=== PATIENT | female | born 1995 | race Hispanic/Latino ===

== ENCOUNTER 2017-07-03 19:44 | Emergency (ER) | payer SELFPAY ==
[2017-07-03] MEDS ORDERED: Lidocaine 1% w/Epinephrine 1:100K 20 ML VIAL ONE (20:26)
[2017-07-03] MEDS ORDERED: Adacel (T-DAP) 0.5 ML VIAL ONE (21:18)
== END 2017-07-03 21:31 | disposition home or self-care (01) ==
LOC: ERS 19:44
DX: L03.114 Cellulitis of left upper limb (principal); Z23 Encounter for immunization
CPT/HCPCS: 10060; 87070; 87077; 87186; 87205; 90471; 90715; J2001

== ENCOUNTER 2017-07-04 16:38 | Emergency (ER) | payer SELFPAY ==
[2017-07-04 18:01] LABS: #Basophils 0.1 thou/uL (0.0-0.2); #Eosinphils 0.1 thou/uL (0.0-0.7); #Monocytes 0.6 thou/uL (0.11-0.59); #Neutrophils 6.6 thou/uL (1.40-6.50); %Basophils 0.6 % (0.0-1.0); %Eosinophils 1.3 % (0.0-10.0); %Lymphocytes 21.2 % (21.0-51.0); %Monocytes 6.6 % (0.0-10.0); %Neutrophils 70.2 % (42.0-75.0); Hemoglobin 13.8 g/dL (12.0-16.0); Mean Corpuscular Hemoglobin 28.7 pg (27.0-31.0); Mean Corpuscular Volume 86.8 fl (81.0-99.0); Mean Platelet Volume 9.1 fL (7.4-10.4); Platelet Count 227 thou/uL (130-400); RBC Distribution Width 12.6 % (11.5-14.5); Red Blood Cell (RBC) Count 4.83 mill/uL (4.20-5.40); White Blood Cell (WBC) Count 9.5 thou/uL (4.8-10.8)
[2017-07-04 18:21] LABS: ALT (SGPT) 11 U/L (8-55); AST (SGOT) 15 U/L (5-34); Albumin 4.3 g/dL (3.5-5.0); Alkaline Phosphatase 101 U/L (40-150); Anion Gap 12 mmol/L (10-20); BUN (Urea Nitrogen) 15 mg/dL (7.0-18.7); Bilirubin, Total 0.4 mg/dL (0.2-1.2); Calc. Creatinine Clearance 0 mL/min (70-130); Calcium 9.6 mg/dL (7.8-10.44); Carbon Dioxide 26 mmol/L (22-29); Chloride 103 mmol/L (98-107); Estimated GFR-MDRD 87; Globulin 3.5 g/dL (2.4-3.5); Glucose 91 mg/dL (70-105); Potassium 3.8 mmol/L (3.5-5.1); Protein, Total 7.8 g/dL (6.0-8.3); Sodium 137 mmol/L (136-145)
[2017-07-04] MEDS ORDERED: Clindamycin 150 MG CAP ONE (22:22)
== END 2017-07-04 22:56 | disposition home or self-care (01) ==
LOC: ERS 16:38
DX: L03.114 Cellulitis of left upper limb (principal)
CPT/HCPCS: 36415; 80053; 83605; 85025; 85652; 86140; 99283

== ENCOUNTER 2017-08-10 17:57 | Emergency (ER) | payer SELFPAY | END 2017-08-10 19:10 | disposition home or self-care (01) | LOC: ERS 17:57 | DX: H00.014 Hordeolum externum left upper eyelid (principal) | CPT/HCPCS: 99283 ==

== ENCOUNTER 2018-12-04 09:50 | Emergency (ER) | payer OTHER, SELFPAY ==
[2018-12-04] MEDS ORDERED: Triple Antibiotic Oint 1 GM Packet ONE (10:51)
== END 2018-12-04 11:08 | disposition home or self-care (01) ==
LOC: ERS 09:50
DX: L03.115 Cellulitis of right lower limb (principal)
CPT/HCPCS: 99283

== ENCOUNTER 2018-12-23 07:58 | Emergency (ER) | payer OTHER ==
[2018-12-23] MEDS ORDERED: Ondansetron PF 4 MG/2 ML Vial ONE (08:23)
[2018-12-23] MEDS ORDERED: Morphine 4 MG/ML VIAL ONE ×2 (08:23→09:52)
[2018-12-23 08:30] LABS: #Basophils 0.1 thou/uL (0.0-0.2); #Eosinphils 0.1 thou/uL (0.0-0.7); #Lymphocytes 2.6 thou/uL (1.20-3.40); #Monocytes 0.4 thou/uL (0.11-0.59); #Neutrophils 2.4 thou/uL (1.40-6.50); %Basophils 1.2 % (0.0-1.0); %Eosinophils 1.6 % (0.0-10.0); %Lymphocytes 46.8 % (21.0-51.0); %Monocytes 6.9 % (0.0-10.0); %Neutrophils 43.6 % (42.0-75.0); Mean Corpuscular HGB CONC 34.4 g/dL (32.0-36.0); Mean Corpuscular Volume 87.4 fL (78.0-98.0); Mean Platelet Volume 9.4 fL (7.4-10.4); Platelet Count 187 thou/uL (130-400); RBC Distribution Width 12.4 % (11.5-14.5); Red Blood Cell (RBC) Count 4.65 mill/uL (4.20-5.40); White Blood Cell (WBC) Count 5.6 thou/uL (4.8-10.8)
[2018-12-23 08:37] LABS: BHCG - Serum Negative (NEGATIVE); Pregs Control Background? CLEAR/WHITE (CLR/WHITE); Pregs Control Bar Appear? YES (CONTROL BAR)
[2018-12-23 08:45] LABS: ALT (SGPT) 12 U/L (8-55); AST (SGOT) 14 U/L (5-34); Albumin 4.4 g/dL (3.5-5.0); Alkaline Phosphatase 78 U/L (40-150); Anion Gap 10 mmol/L (10-20); BUN (Urea Nitrogen) 14 mg/dL (7.0-18.7); Bilirubin, Total 0.3 mg/dL (0.2-1.2); Calc. Creatinine Clearance 0 mL/min (70-130); Calcium 9.3 mg/dL (7.8-10.44); Carbon Dioxide 26 mmol/L (22-29); Chloride 103 mmol/L (98-107); Estimated GFR-MDRD Greater than 90; Globulin 3.1 g/dL (2.4-3.5); Glucose 97 mg/dL (70-105); Lipase 18 U/L (8-78); Potassium 3.4 mmol/L (3.5-5.1); Protein, Total 7.5 g/dL (6.0-8.3); Sodium 136 mmol/L (136-145)
--- NOTE | 2018-12-23 09:11 | CT ---
ABDOMEN AND PELVIC CT SCAN WITH IV CONTRAST: HISTORY: Epigastric pain. History of ulcers. Nausea. FINDINGS: The lung bases are clear. The visualized liver, gallbladder, pancreas, spleen, and adrenal glands ar e unremarkable. No common duct dilatation. No renal calculus or acute obstruction. No large or small bowel obstruction. Normal-appearing appendix. Minimal free cul-de-sac fluid and some fluid in the right adnexal region. Uterus and adnexa are unremarkable as visualized. IMPRESSION: No significant acute process in the abdomen or pelvis. Minimal free cul-de-sac fluid. POS: [facility]
[2018-12-23] MEDS ORDERED: Mag-Al 1200 mg/1200 mg/30 ML UDCUP ONE (09:40)
[2018-12-23] MEDS ORDERED: Lidocaine Viscous Sol 2% 15 ml UD Cup ONE (09:40)
[2018-12-23 09:49] LABS: Bacteria/HPF None Seen HPF (None Seen); Bilirubin Negative (Negative); Blood, Urine Negative (Negative); Clarity Clear (Clear); Glucose, Urine (Dipstick) Normal (Negative); Leukocyte 25 Leu/uL (Negative); Nitrite Negative (Negative); Protein, Urine (Dipstick) Negative (Neg-Trace); RBC/HPF 0-3 HPF (0-3); Squamous Epithelial 0-3 HPF (0-3); Urobilinogen Normal mg/dL (Less than 2); WBC/HPF 0-3 HPF (0-3)
[2018-12-23] MEDS ORDERED: Pantoprazole 40 MG VIAL ONE (09:50)
[2018-12-23] MEDS ORDERED: ISOVUE-370 76%-LOCM 1 ML ONE (13:10)
== END 2018-12-23 10:22 | disposition home or self-care (01) ==
LOC: ERS 07:58
DX: K21.9 Gastro-esophageal reflux disease without esophagitis (principal)
CPT/HCPCS: 74177; 80053; 81003; 81015; 83690; 84703; 85025; 93005; 96361; 96374; 96375; 96376; C9113; J2270; J2405; Q9966

== ENCOUNTER 2019-02-03 06:50 | Outpatient (CLI) | payer OTHER ==
--- NOTE | 2019-02-03 10:13 | ULT ---
RIGHT UPPER QUADRANT ULTRASOUND: HISTORY: Right upper quadrant abdominal pain. COMPARISON: CT abdomen on 12/23/2018. FINDINGS: There is an approximately 4 mm, nonmobile, echogenic focus without posterior shadowing seen along the dependent portion of the gallbladder wall, which may represent a gallbladder polyp or focal adherent sludge. No gallbladder calculus is seen. There is no gallbladder wall thickening or pericholecystic fluid identified. The common duct measures 0.3 cm in diameter, which is within normal limits. The liver, visualized portions of the pancreas, visualized portions of the IVC and right kidney demon strate a normal sonographic appearance. The right kidney measures 9.5 cm in length. IMPRESSION: Nonmobile, echogenic, nonshadowing focus along the dependent portion of the gallbladder wall, which c ould represent either a small gallbladder polyp measuring 4 mm versus an adherent focus of sludge. Th e common duct is normal in caliber. POS: [facility]
== END 2019-02-03 06:51 | disposition home or self-care (01) ==
LOC: BICULT 06:50
PROVIDERS: ATTEND Family Medicine
DX: R10.11 Right upper quadrant pain (principal); K82.9 Disease of gallbladder, unspecified
CPT/HCPCS: 76705

== ENCOUNTER 2020-02-27 17:03 | Emergency (ER) | payer OTHER ==
[~2020-02-27 17:03] MED LIST: Iopamidol-370 76% 500 ML 1 ML ONE
--- NOTE | 2020-02-27 17:31 | RAD ---
RADIOGRAPH CHEST 1 VIEW: DATE: 02/27/2020 HISTORY: 24-year-old female with chest pain and dyspnea FINDINGS: There are no airspace densities, pulmonary edema, pneumothorax, or cardiomegaly. The lateral costophr enic angles are sharp. IMPRESSION: No acute cardiopulmonary findings.
[2020-02-27 18:54] LABS: #Basophils 0.1 thou/uL (0.0-0.2); #Lymphocytes 2.8 thou/uL (1.20-3.40); #Monocytes 0.4 thou/uL (0.11-0.59); #Neutrophils 5.2 thou/uL (1.40-6.50); %Basophils 1.5 % (0.0-1.0); %Eosinophils 0.4 % (0.0-10.0); %Lymphocytes 32.5 % (21.0-51.0); %Monocytes 4.5 % (0.0-10.0); %Neutrophils 61.2 % (42.0-75.0); Hemoglobin 14.9 g/dL (12.0-16.0); Mean Corpuscular HGB CONC 34.6 g/dL (32.0-36.0); Mean Corpuscular Hemoglobin 30.3 pg (27.0-31.0); Mean Corpuscular Volume 87.6 fL (78.0-98.0); Mean Platelet Volume 9.2 fL (7.4-10.4); Platelet Count 247 thou/uL (130-400); RBC Distribution Width 11.6 % (11.5-14.5); White Blood Cell (WBC) Count 8.6 thou/uL (4.8-10.8)
[2020-02-27 19:12] LABS: BHCG - Serum Negative (NEGATIVE); Pregs Control Background? CLEAR/WHITE (CLR/WHITE); Pregs Control Bar Appear? YES (CONTROL BAR)
[2020-02-27 19:15] LABS: ALT (SGPT) 12 U/L (8-55); AST (SGOT) 15 U/L (5-34); Albumin 4.6 g/dL (3.5-5.0); Alkaline Phosphatase 77 U/L (40-110); Anion Gap 15 mmol/L (10-20); BUN (Urea Nitrogen) 14 mg/dL (7.0-18.7); Bilirubin, Total 0.4 mg/dL (0.2-1.2); CK (CPK) 81 U/L (29-168); Calc. Creatinine Clearance 0 mL/min (70-130); Carbon Dioxide 25 mmol/L (22-29); Chloride 103 mmol/L (98-107); Estimated GFR-MDRD 82; Globulin 3.4 g/dL (2.4-3.5); Glucose 97 mg/dL (70-105); Potassium 3.8 mmol/L (3.5-5.1); Sodium 139 mmol/L (136-145)
--- NOTE | 2020-02-27 19:34 | CT ---
CT BRAIN WITHOUT CONTRAST: HISTORY: Headache and left-sided numbness FINDINGS: No evidence of acute infarct, hemorrhage, midline shift or abnormal extra-axial fluid collections is seen. The ventricular size is appropriate and the basilar cisterns are patent. The bony calvarium is intact. The visualized paranasal sinuses and mastoid air cells are well aerated. IMPRESSION: No CT evidence of acute intracranial process.
--- NOTE | 2020-02-27 21:02 | MRI ---
MRI BRAIN WITHOUT CONTRAST: HISTORY: Headache and left-sided numbness CORRELATION: CT scan from 02/27/2020. FINDINGS: No restricted diffusion is seen. The ventricular size is appropriate and the basilar cisterns are pat ent. No tonsillar herniation is seen. No evidence of acute infarct, hemorrhage, midline shift or abnormal extra-axial fluid collections is seen. There is mucosal disease in the paranasal sinuses. IMPRESSION: No evidence of acute intracranial process.
--- NOTE | 2020-02-27 21:14 | CT ---
CTA THORAX WITH CONTRAST CTA ABDOMEN WITH CONTRAST: 02/27/20 (Computed Tomographic Angiography, chest(noncoronary) with contrast material, and image postprocessin g) (Computed Tomographic Angiography, abdomen with contrast material, and image postprocessing) HISTORY: 24-year-old female with dyspnea, chest pain, and left sided numbness. TECHNIQUE: IV injection of iodinated contrast: 85 mL Isovue. Arterial phase bolus chasing technique. Scan acquisition from top of top of aortic arch to iliac crests. 3D coronal and sagittal MIP reconstructions. FINDINGS: There is no aortic aneurysm, dissection, rupture, or atherosclerotic plaque. The aorta, bilateral lina al arteries, bilateral common iliac arteries, celiac artery, superior mesenteric artery, brachiocepha lic artery, and right subclavian and axillary arteries, are normal. The left subclavian and axillary arteries are obscured by streak artifact from contrast bolus in the left subclavian vein. There is no pneumothorax or pleural effusion. The lungs are clear. No cardiomegaly or pericardial effusion. No m ediastinal or hilar lymphadenopathy. No fracture or destructive osseous lesion in the chest, thoracic sine, or lumbar spine. Vertebral body heights are maintained. Trachea and bronchi are patent and clear. In addition to very good opacification of the aorta, there is also very good opacification of all pulmonary artery branches. There is no pulmonary thromboemboli sm. Within the limitations of an [id number] scan, no abnormality is identified involving the emir er, adrenals, kidneys, pancreas, or spleen. No evidence of pneumoperitoneum, ascites, or small bowel dilation. IMPRESSION: Normal. avila[] POS: [facility]
[2020-02-27 21:57] LABS: Troponin I Less than 0.010 ng/mL (< 0.028)
== END 2020-02-27 22:23 | disposition home or self-care (01) ==
LOC: ERS 17:03
DX: R07.89 Other chest pain (principal); R06.00 Dyspnea, unspecified; R20.0 Anesthesia of skin
CPT/HCPCS: 36415; 36416; 70450; 70551; 71045; 71275; 74174; 80053; 82550; 84484; 84703; 85025; 93005; Q9967

== ENCOUNTER 2020-03-30 08:21 | Outpatient (CLI) | payer OTHER ==
--- NOTE | 2020-03-30 09:31 | RAD ---
WITHOUT VIEW CHEST: HISTORY: Dyspnea. FINDINGS: Lung mejias are well aerated and appear clear. No infiltrate identified. Heart and mediastinum unre markable. IMPRESSION: No acute finding. POS: [facility]
== END 2020-03-30 08:22 | disposition home or self-care (01) ==
LOC: BICRAD 08:21
PROVIDERS: ATTEND Internal Medicine Critical Care Medicine
DX: R06.00 Dyspnea, unspecified (principal)
CPT/HCPCS: 71046

== ENCOUNTER 2021-10-11 08:24 | Emergency (ER) | payer OTHER, SELFPAY | END 2021-10-11 09:14 | disposition home or self-care (01) | LOC: ERS 08:24 | DX: H00.014 Hordeolum externum left upper eyelid (principal); Z87.19 Personal history of other diseases of the digestive system | CPT/HCPCS: 99283 ==